=== PATIENT | female | born 1990 | race African-American/Black ===

== ENCOUNTER 2018-11-12 16:27 | Emergency (ER) | payer MEDICAID ==
[~2018-11-12] VITALS: Ht 167.6 cm; Wt 102.0 kg
[2018-11-12] MEDS ORDERED: IBUPROFEN 600MG TABLET PO ONE (18:00)
[2018-11-12 21:56] VITALS: BP 110/62
== END 2018-11-12 21:56 | disposition home or self-care (01) ==
LOC: ER 16:27
DX: S00.83XA Contusion of other part of head, initial encounter (principal); Z90.89 Acquired absence of other organs; Y04.0XXA Assault by unarmed brawl or fight, initial encounter; Y93.89 Activity, other specified; Y92.89 Other specified places as the place of occurrence of the external cause
CPT/HCPCS: 70110; 81025; 99283